=== PATIENT | male | born 1960 | race African-American/Black ===

== ENCOUNTER 2016-11-25 12:51 | Observation (INO) ==
[2016-11-25] MEDS ORDERED: cloNIDine 0.1 MG TABLET ONE ×2 (15:28→16:28)
[2016-11-25] MEDS ORDERED: cloNIDine 0.1 MG TABLET PO STA ×2 (15:28→16:06)
--- NOTE | 2016-11-25 17:08 | Emergency Department Note ---
IReginald Brittany, am scribing for, and in the presence of, Baudilio Bradley MD 16 :09. Mirna Lane Thomas, MD, personally performed the services described in this documentation, ascribed by Erna Montelongo in my presence, and it is both accurate and complete 703 . Arrival - Arrival Chief Complaint: Blood Pressure Stated Complaint: buckley,elev BP ED Nursing Triage Note: pt was here last week and had high bp and states its still up. pt states that he cant go to work until bp comes down and pcp didnt give him a form for medical leave. Mode of Arrival: Ambulatory Limitations: No Limitations Source: Patient Time Seen by Provider: 11/25/16 16:00 - History of Present Illness HPI Narrative: This is a 56 y/o black male, who presents to the ED with c/o hypertension which started last week. He states he was seen here last week herer for the same complaint. He states he has a headache and dizziness but denies any vision changes, CP, SOB, nausea, vomiting,, diarrhea, or abdomen pain. PT has no other complaints/pain in the ED at this time. Pt has a PMHx of HTN. Pt denies a surgical Hx. Pt denies a family medical Hx. Pt is a current every day smoker. Onset (ago): week(s) (Started last week) Consistency: constant Severity: moderate, similar to previous episodes Allergies/Adverse Reactions: Allergies Allergy/AdvReac Type Severity Reaction Status Date / Time No Known Allergies Allergy Unverified 11/12/16 14:59 Home Medications: Home Medications Medication Instructions Recorded Confirmed Type Aspirin EC Tab 81 mg PO QPM 11/12/16 11/12/16 History Azithromycin [Zithromax] 500 mg PO DAILY #5 tablet 11/12/16 Rx Losartan Potassium 100 mg PO QPM 11/12/16 11/12/16 History Multivitamin (Centrum) [Centrum 1 tablet PO QPM 11/12/16 11/12/16 History Tab] cloNIDine TAB [Catapres Tab] 0.1 mg PO BID #30 tablet 11/12/16 Rx Review of System - Review of System 12 point system: reviewed and no additional remarkable complaints except as stated - Review of System Review of Systems: Hypertension Eyes: Absent: redness, vision change Cardiovascular: Absent: chest pain, dyspnea on exertion Gastrointestinal: Absent: abdominal pain, nausea, vomiting, diarrhea Genitourinary male: Absent: dysuria, hematuria Neurological: Present: headache, vertigo (Dizziness/lightheadedness). Absent: weakness, numbness Medical,Surgical,& Family Hx - Medical History Cardio: History of: Hypertension - Social History Smoking Status: Current every day smoker Frequency of Alcohol Use: None Type of Drug Use: Unknown Exam Vital Signs: Vital Signs Temperature 100.1 F H 11/25/16 15:20 Pulse Rate 60 11/25/16 17:40 Respiratory Rate 18 11/25/16 17:40 Blood Pressure 196/113 11/25/16 17:40 O2 Sat by Pulse Oximetry 97 11/25/16 16:31 - General General appearance: alert, in no apparent distress - Head Head exam: Present: atraumatic, normocephalic - Eye Eye exam: Present: EOMI. Absent: conjunctival injection, periorbital swelling, periorbital tenderness - ENT ENT exam: Present: mucous membranes moist - Neck Neck exam: Present: full ROM, trachea midline - Chest Chest inspection: Present: symmetric chest wall rise. Absent: tenderness - Respiratory Respiratory exam: Present: normal lung sounds bilaterally. Absent: respiratory distress - Cardiovascular Cardiovascular exam: Present: regular rate, normal rhythm, normal heart sounds. Absent: murmur, rubs, gallop - Abdominal Exam Abdominal exam: Present: soft, normal bowel sounds. Absent: distention, tenderness - Extremities Exam Extremities exam: Present: normal capillary refill. Absent: pedal edema - Neurological Exam Neurological exam: Present: alert, oriented X3, normal gait - Psychiatric Psychiatric exam: Present: normal affect, normal mood - Skin Skin exam: Present: warm, dry, intact, normal color. Absent: rash Course - Reevaluation(s) Reevaluation #1: little change in BP, Sx resolved Time: 15:30 Reevaluation #2: still uncontrolled HTN Time: 17:07 Reevaluation #3: improving but still rather high considering 3 meds given in ED Time: 19:01 - Consultations Consultation #1: Hospitalist, will see in ED Time: 19:02 Results - Labs CBC & BMP: 11/25/16 17:43 11/25/16 17:43 Lab Results: I have reviewed the patients labs Labs: Laboratory Tests 11/25/16 11/25/16 17:43 17:43 WBC 7.6 RBC 4.44 Hgb 14.1 Hct 40.8 L MCV 91.9 MCH 32 MCHC 34.6 RDW 13.6 Plt Count 215 MPV 8.9 L Neut % (Auto) 53.7 Lymph % (Auto) 34.8 [place] % (Auto) 8.2 Eos % (Auto) 2.1 Baso % (Auto) 0.8 Neut # (Auto) 4.1 Lymph # (Auto) 2.6 [place] # (Auto) 0.6 Eos # (Auto) 0.2 Baso # (Auto) 0.1 Immature Gran % 0.4 Nucleated RBC % 0.0 Immature Gran # 0.03 Nucleated RBCs # 0.00 Immature Plt Fraction 0.0 Sodium 140 Potassium 4.1 Chloride 105 Carbon Dioxide 32 Anion Gap 7.1 BUN 11 Creatinine 1.30 GFR Calculation 68 BUN/Creatinine Ratio 8.00 Glucose 92 Calculated Osmolality 277.4 Calcium 9.0 - EKG EKG results: interpreted by ERMD, sinus rhythm, normal axis, not changed from: ( 10/2016) - Impressions LVH with strain Disposition Clinical Impression: Hypertension, uncontrolled, Headache, Dizziness and giddiness Case discussed with: patient Disposition: Still a Patient Condition: Stable Time of Disposition: 19:03
[2016-11-25] MEDS ORDERED: hydrALAZINE 20 MG/1 ML VIAL IV STA (17:35)
[2016-11-25] MEDS ORDERED: hydrALAZINE 20 MG/1 ML VIAL ONE (17:52)
[2016-11-25 17:56] LABS: Basophils # 0.1 10*3/uL (0.0-0.2); Basophils % 0.8 % (0.0-0.8); Eosinophils # 0.2 10*3/uL (0.0-0.87); Eosinophils % 2.1 % (0.00-10.9); Hematocrit 40.8 VOL% (42.0-52.0); Hemoglobin 14.1 GM/DL (14.0-18.0); Immature Granulocytes % 0.4 %; Immature Granulocytes Absolute 0.03 #; Lymphocytes # 2.6 10*3/uL (1.4-4.0); Lymphocytes % 34.8 % (21.2-54.2); Mean Corpuscular HGB Conc 34.6 GM/DL (32-36); Mean Corpuscular Hemoglobin 32 PG (27-34); Mean Corpuscular Volume 91.9 FL (87-102); Mean Platelet Volume 8.9 FL (9.6-12.0); Monocytes # 0.6 10*3/uL (0.11-0.8); Monocytes % 8.2 % (1.7-12.7); Neutrophils # 4.1 10*3/uL (1.4-7.4); Neutrophils % 53.7 % (38.7-73.9); Platelet Count 215 T/CUMM (130-400); Red Blood Count 4.44 MC/CUMM (3.8-5.5); Red Cell Distribution Width 13.6 % (9.3-17.3); White Blood Count 7.6 T/CUMM (4-12)
--- NOTE | 2016-11-25 18:18 | EKG Report ---
Stationary ECG Study [facility] Test Date: 11/25/2016 6:15:36 PM Pat Name: JULIANA BRISENO Department: Room: Gender: M Online Marketing Director: MERE : 1960 Requested by: Baudilio Bradley Order Number: [id number] Reading MD: KAITLIN POSADA Intervals [place] Rate: 51 P: 76 AL: 175 QRS: 84 QRSD: 94 T: 80 QT: 431 QTc: 407 Interpretive Statements SINUS BRADYCARDIA MINIMAL VOLTAGE CRITERIA FOR LVH, CONSIDER NORMAL VARIANT PROBABLE EARLY REPOLARIZATION VARIANT Electronically Signed On 11-25-16 19:19:36 CDT by KAITLIN POSADA [email or web address]
[2016-11-25 18:27] LABS: Osmolality,Calculated 277.4 MOS/KG (273-304); Potassium 4.1 MMOL/L (3.5-5.1)
--- NOTE | 2016-11-25 20:02 | Event Note ---
I was notified by emergency room that the patient had been advised admission for uncontrolled hypertension. I went into the room and interviewed the patient. He came initially to the emergency room because of headache and dizziness. He received clonidine and his pressure came down from 190-170 systolic. He says he feels fine at this point his symptoms are gone and he wants to go home. I did advise him that I felt it would be best if he let us bring him in at least overnight to make sure that he is indeed stabilized and possibly readjust his regimen as indicated however he again declined admission and insisted that he wanted to go home from the emergency room. I informed his nurse of this decision. I did not complete an H&P nor examine the patient.
--- NOTE | 2016-11-25 20:25 | Hospitalist Consult Note ---
Addendum entered and electronically signed by Bev Katz NP 11/26/16 00 :47: FT called and stated patient wanted to be admitted. Will D/C Procardia and add Lisinopril 20mg po QD, HCTZ 25mg po QD, PRN Hydralazine 10mg po, and monitor blood pressure. Original Note: <Bev Katz - Last Filed: 11/25/16 20:02> Assessment and Plan - Time spent with patient Time spent with patient: Greater than 30 minutes (1) Dizziness and giddiness Status: Acute Current Visit: Yes (2) Headache Status: Acute Current Visit: Yes (3) Hypertension, uncontrolled Status: Acute Assessment and plan: Start on low sodium diet Add HCTZ 25mg po QD May increase Procardia ER to 90mg QD if HCTZ does not work Consult dietary for diet education Current Visit: Yes History of Present Illness - Data of Consult Patient: new to practice Consult date: 11/25/16 Requesting Physician: Baudilio Bradley Primary care physician: Amador Cornejo - Consult Narrative Reason for consult: Uncontrolled hypertension History of present illness: Called to the [facility] for Mr. Ortiz who is a 56 year old male who presents to the Emergency Department with complaints of headache and dizziness that has been waxing and waning for two weeks. He was originally seen here on November 12, 2016 for same complaints and was sent home with Clonidine for HTN and Cipro for sore throat. He was to follow up with his family physician, Dr. Cornejo. When he saw Dr. Cornejo, he changed his BP med to Procardia ER 60mg QD and Losartan 100mg QD. Patient states he has been compliant with medication regimen but has continued to have headache and dizziness. When he presented to the ED, his SBP was 190mmHg. He received two 0.1mg Clonidine po and 5mg Hydralazine IV. His recheck BP was 182/116. He states his dizziness and JC had subsided during his stay in the ER. He denied chest pain, shortness of breath, palpitations, fatigue , n/v/d, coughing, or running fevers. When he was here on the he had a CT head performed which revealed a lacunar infarction of the left jazmyne and atrophy of the frontal lobes. He has no other history other than HTN and denies surgical history. He admits to being a 1 /2 pk a day smoker and denies alcohol or drug use. He will be admitted for hypertension management. Upon Dr. Liz interviewing patient, patient declined admission. See note for further discussion. CC: - Home Medications and Allergies Home Medications: Home Medications Medication Instructions Recorded Confirmed Type Aspirin EC Tab 81 mg PO QPM 11/12/16 11/25/16 History Losartan Potassium 100 mg PO QPM 11/12/16 11/25/16 History Multivitamin (Centrum) [Centrum 1 tablet PO QPM 11/12/16 11/25/16 History Tab] cloNIDine TAB [Catapres Tab] 0.1 mg PO BID #30 tablet 11/12/16 11/25/16 Rx Ciprofloxacin Tab [Cipro Tab] 500 mg PO BID 11/25/16 11/25/16 History Doxazosin [Cardura] 2 mg PO BEDTIME 11/25/16 11/25/16 History NIFEdipine CC TAB [Adalat cc] 60 mg PO DAILY 11/25/16 11/25/16 History Allergies/Adverse Reactions: Allergies Allergy/AdvReac Type Severity Reaction Status Date / Time No Known Allergies Allergy Unverified 11/12/16 14:59 Medical,Surgical,& Family Hx - Medical History Cardio: History of: Hypertension - Family History Family History: Reports;: Family Cancer (father), Family Diabetes (father), Family Hypertension (sister, brother) - Social History Smoking Status: Current every day smoker Frequency of Alcohol Use: None Type of Drug Use: Unknown Marital Status: Single Lives With:: Alone Functional capacity: independent ambulation - Constitutional Constitutional: Present: headache(s). Absent: chills, fatigue, fever(s), weakness - EENT Eyes: Absent: blurry vision, loss of vision Nose, mouth and throat: Present: headache(s). Absent: epistaxis - Cardiovascular Cardiovascular: Absent: chest pain at rest, chest pain with activity, dyspnea, dyspnea on exertion, edema, lightheadedness, palpitations - Respiratory Respiratory: Absent: cough, dyspnea - Gastrointestinal Gastrointestinal: Absent: abdominal pain, diarrhea, nausea, vomiting - Genitourinary Genitourinary: Absent: difficulty urinating - Musculoskeletal Musculoskeletal: Absent: arthralgias - Neurological Neurological: Present: headache(s) Exam - Constitutional Vitals: Period Temp Pulse Resp BP Sys/Lyon Pulse Ox Last 24 Hr 100.1 F-100.1 F 60-70 16-18 190-196/105-113 97-99 General appearance: normal weight, no acute distress - Head Head exam: Present: normal inspection, normocephalic - Eye Eye exam: Present: EOMI Pupils: Present: MAKI, normal accommodation - ENT ENT exam: Present: normal exam - Neck Neck exam: Present: normal inspection - Respiratory Respiratory exam: Present: clear to auscultation bilaterally. Absent: accessory muscle use (Respirations even and non-labored. Symmetrical rise and fall of chest noted. ) - Cardiovascular Cardiovascular exam: Present: regular rate and rhythm (No ectopy on digester. ) - GI/Abdominal GI/Abdominal exam: Present: normal bowel sounds, soft. Absent: distended, tenderness - Extremities Exam Extremities exam: Present: normal inspection, normal capillary refill, full ROM. Absent: edema - Back Exam Back exam: Present: normal inspection - Neurological Exam Neurological exam: Present: alert, oriented X3 (Makes good eye contact. Answers questions appropriately. ) - Psychiatric Psychiatric exam: Present: normal affect, normal mood - Skin Skin exam: Present: normal color, warm, dry Results - Labs CBC & BMP: 11/25/16 17:43 11/25/16 17:43 Lab Results: I have reviewed the past 24 hour labs - EKG EKG results: interpreted by NAINA <Chase Liz - Last Filed: 11/26/16 01:52> Assessment and Plan (1) Hypertension, uncontrolled Status: Acute Assessment and plan: I saw and examined the patient in conjunction with nurse practitioner Bev Katz. I agree with the above assessment. We will start him on lisinopril HCT plus oral hydralazine. Reassess in a.m. and adjust as needed to stabilize his pressure prior to discharge. 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 We told him we will try and get this stabilized form. Exam by me was otherwise unremarkable. Current Visit: Yes History of Present Illness - Consult Narrative History of present illness: Mr. Ortiz is a 56 year old male CC: Chase Liz MD Exam - Constitutional Vitals: Period Temp Pulse Resp BP Sys/Lyon Pulse Ox Last 24 Hr 98.2 F-100.1 F 58-70 16-20 155-196/87-113 97-99 Results - Labs CBC & BMP: 11/25/16 17:43 11/25/16 17:43
[2016-11-25] MEDS ORDERED: ONDANSETRON 4 MG/2 ML VIAL IV PRN (21:48)
[2016-11-25] MEDS ORDERED: ACETAMINOPHEN 325 MG TABLET PO PRN (21:48)
[2016-11-25] MEDS ORDERED: NICOTINE 21 MG/24 HR PATCH TRANSDERM PRN (21:48)
[2016-11-25] MEDS ORDERED: hydrALAZINE 10 MG TABLET PO PRN (21:48)
[2016-11-25] MEDS ORDERED: DOCUSATE SODIUM 100 MG CAPSULE PO PRN (21:48)
[2016-11-25] MEDS ORDERED: ZALEPLON 5 MG CAPSULE PO PRN (21:48)
[2016-11-26] MEDS ORDERED: hydrALAZINE 20 MG/1 ML VIAL IV PRN (01:44)
[2016-11-26 05:24] LABS: Basophils # 0.1 10*3/uL (0.0-0.2); Basophils % 0.6 % (0.0-0.8); Eosinophils # 0.2 10*3/uL (0.0-0.87); Hematocrit 39.7 VOL% (42.0-52.0); Hemoglobin 13.7 GM/DL (14.0-18.0); Immature Granulocytes % 0.3 %; Immature Granulocytes Absolute 0.02 #; Lymphocytes # 2.5 10*3/uL (1.4-4.0); Lymphocytes % 31.3 % (21.2-54.2); Mean Corpuscular HGB Conc 34.5 GM/DL (32-36); Mean Corpuscular Hemoglobin 31 PG (27-34); Mean Corpuscular Volume 90.8 FL (87-102); Mean Platelet Volume 9.2 FL (9.6-12.0); Monocytes # 0.7 10*3/uL (0.11-0.8); Monocytes % 8.7 % (1.7-12.7); Neutrophils # 4.5 10*3/uL (1.4-7.4); Neutrophils % 57.1 % (38.7-73.9); Platelet Count 210 T/CUMM (130-400); Red Blood Count 4.37 MC/CUMM (3.8-5.5); Red Cell Distribution Width 13.5 % (9.3-17.3); White Blood Count 7.9 T/CUMM (4-12)
[2016-11-26 06:04] LABS: Albumin 3.3 G/DL (3.4-5.0); Bilirubin,Total 0.6 MG/DL (0.2-1.0); Calcium 8.8 MG/DL (8.5-10.1); Total Protein 5.8 G/DL (6.4-8.3)
[2016-11-26 06:05] LABS: Free T4 (Free Thyroxine) 1.1 NG/DL (0.76-1.46); Magnesium 2.1 MG/DL (1.8-2.4); Osmolality,Calculated 279.3 MOS/KG (273-304); Risk Ratio 2.03; Thyroid Stimulating Hormone 0.907 uIU/ml (0.358-3.74); VLDL CHOLESTEROL 28.8 MG/DL
--- NOTE | 2016-11-26 08:34 | Discharge Summary ---
Hospital Course - Hospital Course Hospital Course: Mr. Ortiz is a 56 year old male who presents to the Emergency Department with complaints of headache and dizziness that has been waxing and waning for two weeks. He was originally seen here on November 12, 2016 for same complaints and was sent home with Clonidine for HTN and Cipro for sore throat. He was to follow up with his family physician, Dr. Cornejo. When he saw Dr. Cornejo, he changed his BP med to Procardia ER 60mg QD and Losartan 100mg QD. Patient states he has been compliant with medication regimen but has continued to have headache and dizziness. When he presented to the ED, his SBP was 190mmHg. He received two 0.1mg Clonidine po and 5mg Hydralazine IV. His recheck BP was 182/ 116. He states his dizziness and JC had subsided during his stay in the ER. He denied chest pain, shortness of breath, palpitations, fatigue, n/v/d, coughing, or running fevers. When he was here on the he had a CT head performed which revealed a lacunar infarction of the left jazmyne and atrophy of the frontal lobes. He has no other history other than HTN and denies surgical history. He admits to being a 1 /2 pk a day smoker and denies alcohol or drug use. He will be admitted for hypertension management. Mr. Ortiz was restarted on his antihypertensive medicationsIn the hospital. By the following morning his blood pressure was 138/76. It was emphasized to Mr. Ortiz the importance of compliance with his medications. At the time of his discharge he was stable with no complaints. Diagnosis - Discharge Diagnosis (1) Noncompliance Status: Chronic (2) Hypertension, uncontrolled Status: Acute (3) Headache Status: Acute Discharge Plan - Discharge Data Disposition: Disch To Home/Self Care Condition at Discharge: Stable Discharge Diet: advance to your usual diet Activity: resume usual activities as tolerated - Discharge Medications New Lisinopril/Hctz 20-25 [Prinzide 20-25] 1 tablet PO DAILY #30 tablet Continue Aspirin EC Tab 81 mg PO QPM Doxazosin [Cardura] 2 mg PO BEDTIME #30 Losartan Potassium 100 mg PO QPM #30 NIFEdipine CC TAB [Adalat cc] 60 mg PO DAILY #30 cloNIDine TAB [Catapres Tab] 0.1 mg PO BID #60 tablet Multivitamin (Centrum) [Centrum Tab] 1 tablet PO QPM Discontinued Ciprofloxacin Tab [Cipro Tab] 500 mg PO BID - Follow Up or Referral - Forms/Instructions Exam - Constitutional Vitals: Period Temp Pulse Resp BP Sys/Lyon Pulse Ox Last 24 Hr 97.3 F-100.1 F 50-88 16-22 138-196/76-113 95-99 Discharge Results Labs on day of discharge: Labs from last 24 hours 11/26/16 11/26/16 11/26/16 05:08 05:08 05:08 WBC RBC Hgb Hct MCV MCH MCHC RDW Plt Count MPV Neut % (Auto) Lymph % (Auto) [place] % (Auto) Eos % (Auto) Baso % (Auto) Neut # (Auto) Lymph # (Auto) [place] # (Auto) Eos # (Auto) Baso # (Auto) Immature Gran % Nucleated RBC % Immature Gran # Nucleated RBCs # Immature Plt Fraction Sodium 141 Potassium 4.0 Chloride 107 Carbon Dioxide 29 Anion Gap 9.0 BUN 11 Creatinine 1.30 GFR Calculation 67 BUN/Creatinine Ratio 8.00 Glucose 92 Hemoglobin A1c 6.2 Calculated Osmolality 279.3 Calcium 8.8 Magnesium 2.1 Total Bilirubin 0.60 AST 17 ALT 25 Alkaline Phosphatase 86 B-Natriuretic Peptide 90 Total Protein 5.8 L Albumin 3.3 L Globulin 2.5 Albumin/Globulin Ratio 1.3 Triglycerides 144 Cholesterol 120 LDL Cholesterol 43.0 VLDL Cholesterol 28.8 HDL Cholesterol 59 Heart Disease Risk Ratio 2.03 Free T4 1.10 TSH 3rd Generation 0.907 11/26/16 11/25/16 11/25/16 05:08 17:43 17:43 WBC 7.9 7.6 RBC 4.37 4.44 Hgb 13.7 L 14.1 Hct 39.7 L 40.8 L MCV 90.8 91.9 MCH 31 32 MCHC 34.5 34.6 RDW 13.5 13.6 Plt Count 210 215 MPV 9.2 L 8.9 L Neut % (Auto) 57.1 53.7 Lymph % (Auto) 31.3 34.8 [place] % (Auto) 8.7 8.2 Eos % (Auto) 2.0 2.1 Baso % (Auto) 0.6 0.8 Neut # (Auto) 4.5 4.1 Lymph # (Auto) 2.5 2.6 [place] # (Auto) 0.7 0.6 Eos # (Auto) 0.2 0.2 Baso # (Auto) 0.1 0.1 Immature Gran % 0.3 0.4 Nucleated RBC % 0.0 0.0 Immature Gran # 0.02 0.03 Nucleated RBCs # 0.00 0.00 Immature Plt Fraction 0.0 0.0 Sodium 140 Potassium 4.1 Chloride 105 Carbon Dioxide 32 Anion Gap 7.1 BUN 11 Creatinine 1.30 GFR Calculation 68 BUN/Creatinine Ratio 8.00 Glucose 92 Hemoglobin A1c Calculated Osmolality 277.4 Calcium 9.0 Magnesium Total Bilirubin AST ALT Alkaline Phosphatase B-Natriuretic Peptide Total Protein Albumin Globulin Albumin/Globulin Ratio Triglycerides Cholesterol LDL Cholesterol VLDL Cholesterol HDL Cholesterol Heart Disease Risk Ratio Free T4 TSH 3rd Generation DS: Provider Date of admission: 11/25/16 21:07 Primary care physician: . No PCP Attending physician on admission: Chase Liz MD Consults: 11/25/16 21:48 Consult to Dietitian [CONS] Routine Reason for Dietitian: Dietary Consult Coumadin Education Consult Comment: low sodium diet education Discharging clinician: Michi Stephens
[2016-11-26] MEDS ORDERED: LISINOPRIL/HCTZ 20-25 MG TABLET PO SCH (09:00)
[2016-11-26] MEDS ORDERED: PANTOPRAZOLE 40 MG TABLET PO SCH (09:00)
[2016-11-26] MEDS ORDERED: ENOXAPARIN 40 MG/0.4 ML SYRINGE SUBCUT SCH (09:00)
[2016-11-26 10:59] VITALS: BP 169/103
[2016-11-26] MEDS ORDERED: MULTIVITAMIN (CENTRUM) TABLET PO SCH (21:00)
[2016-11-26] MEDS ORDERED: ASPIRIN EC 81 MG TABLET PO SCH (21:00)
== END 2016-11-26 11:27 | disposition home or self-care (01) ==
LOC: N.ED 12:51 → INTOOBSV 20:56 → SUATTDRO 21:07 → N.EDINP 21:07 → N.2E 21:13
PROVIDERS: ADMIT Family Medicine